=== PATIENT | male | born 1985 | race African-American/Black ===

== ENCOUNTER 2019-04-04 11:00 | Emergency (ER) | payer SELFPAY ==
[~2019-04-04] VITALS: Ht 190.5 cm; Wt 91.4 kg
[2019-04-04 11:11] VITALS: BP 118/73
--- NOTE | 2019-04-04 11:11 | NUR ---
PT BIB SELF C/O RT 3RD FINGER PAIN X2 DAYS. NON-RADIATING 10/10 SHARP PAIN W/ PALPATION/PRESSURE, TX W/ ADVIL W/ SOME RELIEF. PT DENIES TRAUMA. + SWELLING, - DRAINAGE, +CMS. PT BRADYCADIC AT 44 BEATS/MIN, PT STATES THAT IS BASELINE, -DIZZINESS, BLURRED VISON, CP, SOB, CAP REFIL <3 SEC. MEDHX:DENIES RX:DENIES
--- NOTE | 2019-04-04 11:15 | NUR ---
Patient ambulated to bed 8. RN evaluating patient at bedside.
[2019-04-04 11:37] VITALS: BP 118/73
--- NOTE | 2019-04-04 11:38 | NUR ---
Patient discharged with v/s stable. Written and verbal after care instructions given and explained. Patient alert, oriented and verbalized understanding of instructions. Ambulatory with steady gait. All questions addressed prior to discharge. ID band removed. Patient advised to follow up with PMD. Rx of KEFLEX AND MOTRIN given. Patient educated on indication of medication including possible reaction and side effects. Opportunity to ask questions provided and answered. MD AWARE OF PAIN, OKAY TO D/C. ADIVSED PT TO FOLLOW UP WITH PRIMARY CARE.
== END 2019-04-04 11:38 | disposition home or self-care (01) ==
LOC: MED 11:00
DX: L03.011 Cellulitis of right finger (principal)
CPT/HCPCS: 99283